=== PATIENT | male | born 2005 | race Caucasian/White ===

== ENCOUNTER 2023-05-04 13:48 | Emergency (ER) | payer OTHER ==
[2023-05-04] MEDS ORDERED: Ibuprofen 800 MG TAB ONE (14:52)
== END 2023-05-04 15:54 | disposition home or self-care (01) ==
LOC: ERS 13:48
DX: M54.2 Cervicalgia (principal); M54.50 Low back pain, unspecified; G89.29 Other chronic pain; V89.2XXA Person injured in unspecified motor-vehicle accident, traffic, initial encounter
CPT/HCPCS: 72100; 72125